=== PATIENT | female | born 1960 | race Hispanic/Latino ===

== ENCOUNTER → 2025-04-10 | Day surgery (SDC) | payer BC ==
[2025-04-02 11:59] LABS: BASOPHILS % 0.2 % (0.0-1.0); EOSINOPHILS % 0.6 % (0.0-6.0); LYMPHOCYTES % 63.1 % (18.0-39.1); MONOCYTES % 6.3 % (4.4-11.3); NEUTROPHILS % 29.7 % (38.7-80.0); RED CELL DISTRIBUTION WIDTH 13.4 % (11.7-14.4)
[2025-04-02 12:23] LABS: EST GLOMERULAR FILTRATION RATE 76.0 ML/MIN (>=60)
[~2025-04-10] MED LIST: ACETAMINOPHEN 1000 MG/100 ML 100 ML IV ONE; EPHEDRINE SULFATE INJ 50 MG/ML VIAL ONE; FENTANYL CITRATE/PF 100MCG/2 ML INJ ONE; HYDROCODONE/APAP 7.5MG-325MG 1 EA TAB ONE; LIDOCAINE HCL 2% LOCAL INJ 5 ML SDV VIAL INJ ONE; LIPITOR10 MG PO; LOSARTAN POTASS25 MG PO; MAGNESIUM OXID400 MG PO; METOPROLOL SUCC25 MG PO; MIDAZOLAM HCL 2 MG/2 ML VIAL ONE; NAPROSYN500 MG PO; NEURONTIN300 MG PO; ONDANSETRON HCL INJ 2MG/ML 2ML 2 MG/ML VIAL ONE; PROPOFOL IV EMULSION 10 MG/ML 20 ML VIAL ONE; RYBELSUS3 MG PO; SEVOFLURANE INHAL SOLN 250 ML PEN BTL ONE
[2025-04-10] MEDS: CEFAZOLIN SODIUM 2 GM ONE (06:04)
[2025-04-10] MEDS: LACTATED RINGER'S 1,000 ML ONE (06:05)
[2025-04-10 08:11] VITALS: TEMP 97.4
[2025-04-10] MEDS: HYDROCODONE/APAP 7.5MG-325MG 1 EA TAB PO ONE (09:15)
[2025-04-10 09:40] VITALS: BP 129/76; PULSE 61; RESP 16; O2SAT 99
== END | disposition home or self-care (01) ==
LOC: OR 05:22
PROVIDERS: ATTEND Podiatrist Foot Surgery
DX: G58.8 Other specified mononeuropathies (principal); Z45.89 Encounter for adjustment and management of other implanted devices; L91.0 Hypertrophic scar; I10 Essential (primary) hypertension; E78.5 Hyperlipidemia, unspecified; E66.01 Morbid (severe) obesity due to excess calories; Z01.810 Encounter for preprocedural cardiovascular examination; Z01.812 Encounter for preprocedural laboratory examination; Z01.818 Encounter for other preprocedural examination; Z79.899 Other long term (current) drug therapy
CPT/HCPCS: 36415; 71046; 80048; 85025; 88300; 93005; J2003; J2250; J2405